=== PATIENT | male | born 1975 | race Two or more races ===

== ENCOUNTER 2020-08-12 13:37 | Emergency (ER) | payer SELFPAY ==
[~2020-08-12] VITALS: Ht 175.3 cm; Wt 71.2 kg
[2020-08-12 13:44] VITALS: BP 130/85
== END 2020-08-12 14:51 | disposition left against medical advice (07) ==
LOC: ER 13:37
DX: Z53.21 Procedure and treatment not carried out due to patient leaving prior to being seen by health care provider